=== PATIENT | female | born 1975 | race Two or more races ===

== ENCOUNTER 2019-05-12 20:16 | Emergency (ER) | payer OTHER ==
[~2019-05-12] VITALS: Ht 157.5 cm; Wt 63.5 kg
[2019-05-12 20:16] VITALS: BP 114/79
--- NOTE | 2019-05-12 21:18 | NUR ---
Patient discharged to home in stable condition. Written and verbal after care instructions given. Patient verbalizes understanding of instruction.
== END 2019-05-12 22:16 | disposition home or self-care (01) ==
LOC: ER 20:16
DX: J40 Bronchitis, not specified as acute or chronic (principal)
CPT/HCPCS: 71045-TC; 82962-TC